=== PATIENT | female | born 1990 | race Caucasian/White ===

== ENCOUNTER → 2018-09-08 | Outpatient (REF) | payer OTHER ==
[~2018-09-08] MED LIST: ACET50TA PO; CHILCHW18 PO; IBUP80TA PO
== END ==
LOC: M LAB REF 13:05
PROVIDERS: ATTEND Obstetrics & Gynecology
DX: Z12.4 Encounter for screening for malignant neoplasm of cervix (principal)

== ENCOUNTER 2018-10-10 06:02 | Day surgery (SDC) | payer OTHER ==
[~2018-10-10] VITALS: Ht 162.6 cm; Wt 85.3 kg
[2018-10-10 06:36] LABS: HEMATOCRIT 40.1 % (36.0-47.0); HEMOGLOBIN 13.4 g/dl (12.0-15.5); MEAN CORPUSCULAR HEMOGLOBIN 28.5 pg (27.0-33.0); MEAN CORPUSCULAR HGB CONC 33.4 g/dl (32.0-36.5); MEAN CORPUSCULAR VOLUME 85.1 fl (80.0-96.0); PLATELET COUNT, AUTOMATED 299 10^3/uL (150-450); RED BLOOD COUNT 4.71 10^6/uL (4.00-5.40); WHITE BLOOD COUNT 7.2 10^3/uL (4.0-10.0)
[2018-10-10] MEDS ORDERED: LR 1,000 ML IV ONE (07:00)
[2018-10-10] MEDS ORDERED: fentaNYL 250 MCG/5 ML INJECTION (J3010) As Ordered ONE (07:08)
[2018-10-10] MEDS ORDERED: MIDAZOLAM INJ 2 MG/2 ML VIAL (J2250) As Ordered ONE (07:09)
[2018-10-10] MEDS ORDERED: SILVER NITRATE APPLICATOR As Ordered ONE (07:11)
[2018-10-10] MEDS ORDERED: BUPIVACAINE HCL 0.25% 30 ML VIAL As Ordered ONE (07:11)
[2018-10-10] MEDS ORDERED: dexameTHASONE 4 MG/ML 1ML VIAL (J1100) As Ordered ONE (08:00)
[2018-10-10] MEDS ORDERED: METOCLOPRAMIDE INJ 10MG/2ML VIAL (J2765) As Ordered ONE (08:00)
[2018-10-10] MEDS ORDERED: SUGAMMADEX SODIUM 500 MG/5 ML VIAL (BRIDION) As Ordered ONE (08:43)
[2018-10-10] MEDS ORDERED: ONDANSETRON 4MG/2ML VIAL (J2405) As Ordered ONE (08:55)
[2018-10-10] MEDS ORDERED: LR 1,000 ML IV SCH ×2 (09:15)
[2018-10-10] MEDS ORDERED: fentaNYL 100 MCG/2 ML INJECTION (J3010) IV PRN (09:15)
[2018-10-10] MEDS ORDERED: HYDROMORPHONE HCL 0.5 MG/ 0.5 ML SYRINGE (J1170 PER 1) IV PRN (09:15)
[2018-10-10] MEDS ORDERED: NORCO, ANEXSIA 5/325MG TABLET (HYDROcodone/ACETAMINOPHEN) PO PRN (09:15)
[2018-10-10] MEDS ORDERED: ONDANSETRON 4MG/2ML VIAL (J2405) IV PRN (09:15)
[2018-10-10] MEDS ORDERED: PERCOCET PO (09:23)
[2018-10-10 10:30] VITALS: BP 120/59
--- NOTE | 2018-10-10 16:37 | RO ---
DATE OF PROCEDURE: 10/10/2018 PREOPERATIVE DIAGNOSIS: Satisfied parity. POSTOPERATIVE DIAGNOSIS: Satisfied parity. PROCEDURE PERFORMED: Laparoscopic bilateral salpingectomy. SURGEON: Meliton Yao DO REHAB SERVICES AIDE: None. ANESTHESIA TYPE: General endotracheal. SPECIMENS TO PATHOLOGY: Bilateral fallopian tubes. ESTIMATED BLOOD LOSS: 20 mL. FLUIDS REPLACED: 1150 mL of lactated Ringer's. DRAINS: Jones catheter 10 mL urine output. COMPLICATIONS: None. PREOPERATIVE ANTIBIOTICS: None indicated. INTRAOPERATIVE FINDINGS: Incidentally discovered a 2 to 3 cm left paraovarian cyst, otherwise normal adnexa, fallopian tubes, ovaries bilaterally. Normal appearing uterus and normal appearing appendix and gallbladder and liver edge. INDICATION: Patient is a 28-year-old 2, para 2 with 100% satisfied parity. After reviewing control options and sterilization options, she has pursued that she has decided to proceed with an opportunistic laparoscopic bilateral salpingectomy. DESCRIPTION OF PROCEDURE: The patient was counseled on the risks, benefits, indications and alternatives of the procedure. Informed consent was obtained. She was taken to the operating room with an IV running and placed on the operating table in dorsal supine position. General anesthesia was administered. The airway secured without any difficulty. She was then placed in the low lithotomy position. She was prepared and draped in a normal sterile fashion. A time-out was performed per protocol. A Jones catheter was placed under sterile conditions. A sterile speculum was placed with good visualization of the cervix. The anterior lip of the cervix was grasped with a single tooth tenaculum and downward traction was applied. The ZUMI uterine manipulator was placed without any difficulty. The single-tooth tenaculum was removed. The tenaculum sites were noted be hemostatic. The speculum was removed. Glove switch was performed. Attention was turned to the abdomen. 0.25% Marcaine was injected into the umbilicus. An #11 blade was used to make a 5 mm umbilical incision. Through this incision, a Veress needle was placed into the intraperitoneal cavity. Intraperitoneal placement was confirmed with the ease of flow of normal saline, negative return on aspiration and a positive drop test. Opening pressure was 3 mmHg. The abdomen was insufflated with 2 liters of gas. The Veress needle was removed. A size 5 mm Xcel laparoscopic trocar was placed into the intraperitoneal cavity without any incidental bleeding or injury. The patient was then placed in steep Trendelenburg. Two additional laparoscopic port sites were placed in the left lower abdomen through 5 mm incisions, Xcel trocars were placed under direct visualization without any difficulty. Attention was first turned to the left fallopian tube. The left fallopian tube did have a left paraovarian cyst. After following the fallopian tube out to the fimbriated end and elevating the fallopian tube, the underlying mesosalpinx/broad ligament was sequentially clamped, coagulated and transected until the level of the cornu was reached. At the level of cornu, the left fallopian tube was perpendicularly clamped, coagulate and transected thus amputating the left fallopian tube. The left fallopian tube was brought through the cannula without any difficulty. The incidentally discovered left parovarian cyst was still hanging by stalk; this was elevated and the underlying connective tissue was clamped, coagulated and transected thus amputating the left parovarian cyst. And this left paraovarian cyst was incidentally ruptured and brought through the cannula without any difficulty. Attention was then turned to the right fallopian tube. The right fallopian tube was followed out to the fimbriated end, grasped and elevated and the underlying mesosalpinx, broad ligament was sequentially clamped, coagulate and transected until the level of the cornu was reached. At the level of the cornu, the fallopian tubes were perpendicularly clamped, coagulated and transected thus amputating the right fallopian tube. The right fallopian tube was brought through the cannula without any difficulty. All specimens were sent together for permanent section. Examination of the operative sites revealed a small amount of bleeding from the left broad ligament near the area of the paraovarian cyst. The LigaSure device was used to clamp and coagulate this area of bleeding. Excellent hemostasis was noted. Melyssa was placed to ensure hemostasis. The gas was released from the abdomen, and the patient was taken out Trendelenburg, I gave it a few minutes of time and then the patient was reinsufflated and placed back into Trendelenburg. The pelvis was inspected and the operative sites were inspected and noted to continue to have excellent hemostasis. At this point, the decision was made to conclude the procedure. The patient was taken out of Trendelenburg, the gas was released from the abdomen. The cannulas were removed. The skin incisions were closed with #4-0 Monocryl in a subcuticular fashion and reinforced with Dermabond. Attention was turned to the vagina. All instruments were removed from the vagina. The ZUMI uterine manipulator was removed without any difficulty. The tenaculum sites were inspected and noted to be hemostatic after application of silver nitrate. The sterile speculum was removed. The sponge, lap, needle and instrument counts were all correct. The patient tolerated the entire procedure very well. She was transferred to the post-anesthesia care unit (PACU) in good and stable condition.
== END 2018-10-10 10:53 | disposition home or self-care (01) ==
LOC: M SDC 06:02
PROVIDERS: ATTEND Obstetrics & Gynecology
DX: Z30.2 Encounter for sterilization (principal); D64.9 Anemia, unspecified; F41.9 Anxiety disorder, unspecified
CPT/HCPCS: 58661; 84702; 85027; 86850; 86900; 86901; 88302; J1100; J2250; J2405; J2765; J3010

== ENCOUNTER 2024-02-09 10:17 | Emergency (ER) | payer OTHER ==
[~2024-02-09] VITALS: Ht 160 cm; Wt 66.1 kg
[~2024-02-09 10:17] MED LIST changes: -ACET50TA PO; +MAPA500T17 PO; +PERCOCET PO
[2024-02-09 11:31] LABS: BASO % 0.2 % (0.0-1.0); EOS % 0.3 % (0.0-3.0); HEMATOCRIT 43.3 % (36.0-47.0); HEMOGLOBIN 14.6 g/dl (12.0-15.5); LYMPH # 1.6 10^3/uL (1.5-5.0); LYMPH % 12.7 % (24.0-44.0); MEAN CORPUSCULAR HGB CONC 33.7 g/dl (32.0-36.5); MEAN CORPUSCULAR VOLUME 89.1 fl (80.0-96.0); MONO # 0.9 10^3/uL (0.0-0.8); MONO % 7.5 % (2.0-8.0); NEUTROPHILS # 9.6 10^3/uL (1.5-8.5); NEUTROPHILS % 78.7 % (36.0-66.0); PLATELET COUNT, AUTOMATED 338 10^3/uL (150-450); RED BLOOD COUNT 4.86 10^6/uL (4.00-5.40); WHITE BLOOD COUNT 12.2 10^3/uL (4.0-10.0)
[2024-02-09 11:59] LABS: LIPASE 22 U/L (12-53)
[2024-02-09 12:01] LABS: ALBUMIN 4.2 G/DL (3.2-5.2); ALKALINE PHOSPHATASE 50 U/L (46-116); ALT/SGPT 10 U/L (7.0-40); AST/SGOT 9 U/L (<34); BILIRUBIN,DIRECT 0.2 MG/DL (<0.4); BILIRUBIN,TOTAL 0.6 MG/DL (0.3-1.2); BLOOD UREA NITROGEN 11 MG/DL (9-23); CALCIUM LEVEL 10.2 MG/DL (8.5-10.1); CARBON DIOXIDE LEVEL 23 MMOL/L (20-31); CHLORIDE LEVEL 106 MMOL/L (98-107); CREATININE FOR GFR 0.63 MG/DL (0.55-1.30); GLOMERULAR FILTRATION RATE > 60.0 (>60); GLUCOSE, FASTING 102 MG/DL (60-100); POTASSIUM SERUM 3.4 MMOL/L (3.5-5.1); SODIUM LEVEL 140 MMOL/L (136-145); TOTAL PROTEIN 7.3 G/DL (5.7-8.2)
[2024-02-09] MEDS ORDERED: ISOVUE-370 76% 100ML VIAL As Ordered ONE (12:30)
[2024-02-09] MEDS ORDERED: ONDANSETRON 4MG ORAL DISINTEGRATING TAB PO ONE (13:05)
[2024-02-09] MEDS: ONDANSETRON 4MG 2ML VIAL IV ONE (13:24)
[2024-02-09] MEDS: NS 1,000 ML IV ONE (13:25)
[2024-02-09] MEDS ORDERED: ONDA-282 PO (14:18)
[2024-02-09 15:15] VITALS: BP 115/56; TEMP 97.7; O2SAT 100
== END 2024-02-09 15:16 | disposition home or self-care (01) ==
LOC: M ED 10:17
DX: A09 Infectious gastroenteritis and colitis, unspecified (principal); Z79.899 Other long term (current) drug therapy
CPT/HCPCS: 74177; 80048; 80076; 81001; 83690; 85025; 87086; 96361; 96374; 99284; J2405; Q9967

== ENCOUNTER 2024-02-14 14:22 | Emergency (ER) | payer OTHER ==
[~2024-02-14] VITALS: Ht 160 cm; Wt 64.6 kg
[~2024-02-14 14:22] MED LIST changes: +ONDA-282 PO
[2024-02-14 14:23] VITALS: TEMP 98.2
[2024-02-14] MEDS: MORPHINE 2 MG/ML 1ML VIAL IV ONE (17:35)
[2024-02-14] MEDS: ONDANSETRON 4MG 2ML VIAL IV ONE (17:35)
[2024-02-14] MEDS: NS 1,000 ML IV ONE (17:35)
[2024-02-14 17:44] LABS: BASO % 0.3 % (0.0-1.0); EOS # 0.2 10^3/uL (0.0-0.5); EOS % 1.5 % (0.0-3.0); HEMATOCRIT 41.6 % (36.0-47.0); HEMOGLOBIN 14.5 g/dl (12.0-15.5); LYMPH # 2.9 10^3/uL (1.5-5.0); LYMPH % 24.2 % (24.0-44.0); MEAN CORPUSCULAR HGB CONC 34.9 g/dl (32.0-36.5); MEAN CORPUSCULAR VOLUME 86.1 fl (80.0-96.0); MONO # 1.2 10^3/uL (0.0-0.8); MONO % 9.8 % (2.0-8.0); NEUTROPHILS # 7.5 10^3/uL (1.5-8.5); NEUTROPHILS % 63.9 % (36.0-66.0); PLATELET COUNT, AUTOMATED 356 10^3/uL (150-450); RED BLOOD COUNT 4.83 10^6/uL (4.00-5.40); WHITE BLOOD COUNT 11.8 10^3/uL (4.0-10.0)
[2024-02-14 18:11] LABS: LIPASE 22 U/L (12-53)
[2024-02-14 18:13] LABS: ALBUMIN 3.7 G/DL (3.2-5.2); ALKALINE PHOSPHATASE 49 U/L (46-116); ALT/SGPT 11 U/L (7.0-40); AST/SGOT < 8 U/L (<34); BILIRUBIN,DIRECT 0.2 MG/DL (<0.4); BILIRUBIN,TOTAL 0.5 MG/DL (0.3-1.2); TOTAL PROTEIN 6.7 G/DL (5.7-8.2)
[2024-02-14 18:36] LABS: HCG, SERUM QUALITATIVE NEGATIVE (NEGATIVE)
[2024-02-14] MEDS ORDERED: ISOVUE-370 76% 100ML VIAL As Ordered ONE (18:38)
[2024-02-14] MEDS: MAG SULF 1GM/100ML (MAG RUN) 1 GM in IV 1 EA IV ONE ×2 (19:19→19:53)
[2024-02-14] MEDS: KCL 10MEQ/100ML SWI (KRUN) 10 MEQ in IV 1 EA IV ONE (19:20)
[2024-02-14] MEDS: POTASSIUM CHLORIDE 10MEQ SR TABLET PO ONE ×2 (19:53→22:50)
[2024-02-14 20:59] LABS: BLOOD UREA NITROGEN 6 MG/DL (9-23); CARBON DIOXIDE LEVEL 24 MMOL/L (20-31); CHLORIDE LEVEL 104 MMOL/L (98-107); CREATININE FOR GFR 0.67 MG/DL (0.55-1.30); GLOMERULAR FILTRATION RATE > 60.0 (>60); GLUCOSE, FASTING 88 MG/DL (60-100); MAGNESIUM LEVEL 2.2 MG/DL (1.8-2.4); POTASSIUM SERUM 3.1 MMOL/L (3.5-5.1); SODIUM LEVEL 139 MMOL/L (136-145)
[2024-02-14 22:31] VITALS: O2SAT 100
[2024-02-14 22:53] VITALS: BP 118/72
[2024-02-14] MEDS ORDERED: ANUS2.5C2 TOP (22:58)
== END 2024-02-14 23:04 | disposition home or self-care (01) ==
LOC: M ED 14:22
DX: K59.00 Constipation, unspecified (principal); E87.6 Hypokalemia; K64.9 Unspecified hemorrhoids; I45.81 Long QT syndrome; Z79.899 Other long term (current) drug therapy
CPT/HCPCS: 74177; 80047; 80048; 80076; 81001; 83690; 83735; 84132; 84703; 85025; 87086; 93005; 96365; 96366; 96374; 99284; J2405; J3475; Q9967

== ENCOUNTER 2024-02-16 07:29 | Observation (INO) | payer OTHER ==
[~2024-02-16] VITALS: Ht 160 cm; Wt 66.4 kg
[~2024-02-16 07:29] MED LIST changes: +ANUS2.5C2 TOP
[2024-02-16] MEDS: FLEET OIL RETENTION ENEMA PR ONE (08:56)
[2024-02-16] MEDS: MAGNESIUM CITRATE 300ML BTL PO ONE (10:28)
[2024-02-16] MEDS: ONDANSETRON 4MG ORAL DISINTEGRATING TAB PO ONE (10:36)
[2024-02-16] MEDS: PREPARATION H SUPP (HEMORRHOID) PR ONE ×2 (14:26→21:48)
[2024-02-16] MEDS: EMLA CREAM 5GM TUBE (LIDOCAINE/PRILOCAINE) TOP ONE (14:27)
[2024-02-16 15:47] LABS: BASO % 0.4 % (0.0-1.0); EOS # 0.2 10^3/uL (0.0-0.5); EOS % 1.8 % (0.0-3.0); HEMATOCRIT 39.7 % (36.0-47.0); HEMOGLOBIN 13.5 g/dl (12.0-15.5); LYMPH % 21.9 % (24.0-44.0); MEAN CORPUSCULAR HEMOGLOBIN 29.9 pg (27.0-33.0); MEAN CORPUSCULAR VOLUME 87.8 fl (80.0-96.0); MONO # 0.7 10^3/uL (0.0-0.8); MONO % 7.3 % (2.0-8.0); NEUTROPHILS # 6.2 10^3/uL (1.5-8.5); NEUTROPHILS % 68.4 % (36.0-66.0); PLATELET COUNT, AUTOMATED 341 10^3/uL (150-450); RED BLOOD COUNT 4.52 10^6/uL (4.00-5.40); WHITE BLOOD COUNT 9.1 10^3/uL (4.0-10.0)
[2024-02-16] MEDS ORDERED: HOME MED LIST COMPLETE! XX SCH (16:15)
[2024-02-16] MEDS ORDERED: ANUS2.5C2 PR (16:15)
[2024-02-16 16:26] LABS: PROCALCITONIN <0.04 ng/ml
[2024-02-16 16:27] LABS: BLOOD UREA NITROGEN < 5 MG/DL (9-23); CALCIUM LEVEL 9.3 MG/DL (8.5-10.1); CARBON DIOXIDE LEVEL 23 MMOL/L (20-31); CHLORIDE LEVEL 108 MMOL/L (98-107); CREATININE FOR GFR 0.59 MG/DL (0.55-1.30); GLOMERULAR FILTRATION RATE > 60.0 (>60); GLUCOSE, FASTING 81 MG/DL (60-100); POTASSIUM SERUM 3.8 MMOL/L (3.5-5.1); SODIUM LEVEL 140 MMOL/L (136-145)
[2024-02-16] MEDS: cefTRIAXone SOD 1 GM in D5W MINI-BAG PLUS 50 ML IV ONE (16:58)
[2024-02-16 17:52] VITALS: BP 128/72; TEMP 97.2; O2SAT 97
[2024-02-16] MEDS: metroNIDAZOLE 500 MG in IV 1 EA IV SCH (18:09)
[2024-02-16 19:24] VITALS: BP 127/75; TEMP 98.2; O2SAT 98
[2024-02-16] MEDS: EMLA CREAM 5GM TUBE (LIDOCAINE/PRILOCAINE) TOP SCH (21:00)
[2024-02-16] MEDS: PROCTOFOAM-HC 1% FOAM 10GM CAN PR SCH (21:52)
[2024-02-16] MEDS: DOCUSATE SODIUM 100MG CAPSULE PO ONE (21:53)
[2024-02-16] MEDS: SENNA 8.6 MG TAB (SENOKOT) PO ONE (21:53)
[2024-02-16] MEDS ORDERED: RAMELTEON 8 MG TAB (ROZEREM) PO PRN (23:35)
[2024-02-17 04:51] VITALS: BP 100/62; TEMP 98.1; O2SAT 99
[2024-02-17 06:49] LABS: HEMATOCRIT 37.5 % (36.0-47.0); HEMOGLOBIN 12.6 g/dl (12.0-15.5); MEAN CORPUSCULAR HEMOGLOBIN 29.4 pg (27.0-33.0); MEAN CORPUSCULAR HGB CONC 33.6 g/dl (32.0-36.5); MEAN CORPUSCULAR VOLUME 87.6 fl (80.0-96.0); PLATELET COUNT, AUTOMATED 316 10^3/uL (150-450); RED BLOOD COUNT 4.28 10^6/uL (4.00-5.40)
[2024-02-17 07:25] LABS: BLOOD UREA NITROGEN 5 MG/DL (9-23); CALCIUM LEVEL 9.1 MG/DL (8.5-10.1); CARBON DIOXIDE LEVEL 24 MMOL/L (20-31); CHLORIDE LEVEL 108 MMOL/L (98-107); CREATININE FOR GFR 0.62 MG/DL (0.55-1.30); GLOMERULAR FILTRATION RATE > 60.0 (>60); GLUCOSE, FASTING 85 MG/DL (60-100); POTASSIUM SERUM 3.8 MMOL/L (3.5-5.1); SODIUM LEVEL 140 MMOL/L (136-145)
[2024-02-17] MEDS: PREPARATION H SUPP (HEMORRHOID) PR SCH (07:58)
[2024-02-17] MEDS: DOCUSATE SODIUM 100MG CAPSULE PO SCH (07:58)
[2024-02-17] MEDS: SENNA 8.6 MG TAB (SENOKOT) PO SCH (07:58)
[2024-02-17] MEDS: cefTRIAXone SOD 1 GM in D5W MINI-BAG PLUS 50 ML IV SCH (09:24)
[2024-02-17 12:00] VITALS: BP 115/73; TEMP 97.9; O2SAT 100
[2024-02-17] MEDS ORDERED: COLA100C5 PO (12:48)
[2024-02-17] MEDS ORDERED: SENN-85 PO (12:49)
[2024-02-17] MEDS ORDERED: LIDO30CR18 TOP (12:50)
== END 2024-02-17 13:26 | disposition home or self-care (01) ==
LOC: M ED 07:29 → M ED INP 07:30 → M MSPAV 17:53 → INTOOBSV 02-17 12:11 → OBSVTOIN 02-17 12:11 → UNDODISIN 02-17 13:26
PROVIDERS: ADMIT Internal Medicine; ATTEND Internal Medicine
DX: K59.00 Constipation, unspecified (principal); K62.5 Hemorrhage of anus and rectum; F17.200 Nicotine dependence, unspecified, uncomplicated
CPT/HCPCS: 36415; 74018; 80047; 80048; 84145; 85025; 85027; 86140; 96365; 96375; 96376; 99284; J0696; J1836